=== PATIENT | female | born 1960 | race Two or more races ===

== ENCOUNTER 2025-05-24 10:07 | Inpatient (IN) | payer OTHER ==
[~2025-05-24] VITALS: Ht 157.5 cm; Wt 96.2 kg
[2025-05-24] MEDS ORDERED: ATORVASTATIN CA80 MG PO (10:48)
[2025-05-24] MEDS ORDERED: SUCRALFATE1 GM PO (10:48)
[2025-05-24] MEDS ORDERED: HYDROCHLOROTHIA25 MG PO (10:48)
[2025-05-24] MEDS ORDERED: IRBESARTAN300 MG PO (10:48)
--- NOTE | 2025-05-24 10:50 | NUR ---
PTE REFIERE DOLOR ABODMINAL DESDE HACE VARIOD CASTILLO. PTE REFIEFE QUE PADESE DE LA VESICULA. SE LE LILIAM S/V Y SE UBICA EN PAULO.
[2025-05-24] MEDS ORDERED: FAMOTIDINE/PF 20 MG in 0.9 % SODIUM CHLORIDE 8 ML IV PUSH STA (11:09)
[2025-05-24] MEDS ORDERED: METHYLPREDNISOLONE SOD SUCC 125 MG VIAL IV ONE (11:15)
[2025-05-24] MEDS ORDERED: 0.9 % SODIUM CHLORIDE 1,000 ML IV SCH ×2 (11:15)
[2025-05-24] MEDS ORDERED: ONDANSETRON HCL 2 MG/ML VIAL IV ONE (11:15)
[2025-05-24] MEDS ORDERED: KETOROLAC TROMETHAMINE 30 MG VIAL IV ONE (11:15)
--- NOTE | 2025-05-24 12:03 | NUR ---
SE ORIENTA A PACIENTE SOBRE TX [id number] Y JORDEN REFIERE ENTENDER Y ACEPTAR EL M,ISMO. SE PROCEDE A GERALDINE MUESTRAS DE LAB. BAJO MEDIDAS ASEPTICAS. SE CANALIZA PACIENTE BAJO MEDIDAS ASEPTICAS, PATENTE, DANIEL DE EDEMA Y ERITEMA. SE PROCEDE A ADMINISTRAR MEDICAMENTRO LUCIANA ORDEN MEDICA BAJO MEDIDAS ASEPTICAS.
[2025-05-24 12:39] LABS: BASO % 1.2 % (0.1-1.2); EOS # 0.30 (0.04-0.54); EOS % 5.1 % (0.7-7.0); LYMPH # 2.57 (1.18-3.74); LYMPH % 43.3 % (19.3-53.1); MEAN PLATELET VOLUME 11.70 fl (9.4-12.4); MONO # 0.79 (0.24-0.82); NEUT # 2.16 (1.56-6.13); NEUT % 36.4 % (34.0-71.1); RED CELL DISTRIBUTION WIDTH 13.9 % (11.6-14.4)
[2025-05-24 12:42] LABS: ALT/SGPT 27 U/L (12-78); AST/SGOT 21 U/L (15-37); BILIRUBIN TOTAL 0.26 mg/dL (0.3-1.2); BILIRUBIN,CONJUGATED < 0.10 mg/dL (0.0-0.2); BUN CREA RATIO 19 (7.0-25.0); CREATININE SERUM 0.73 mg/dL (0.55-1.02); GFR 80.52; GLOBULINA 4.7 G/DL (2.4-3.5); GLUCOSE FASTING 76 mg/dL (65-100); MONO % 13.3 % (4.7-12.5); OSMOLALITY SERUM 280 MOSM/KG (275-295)
[2025-05-24 12:48] LABS: INR 1.1
[2025-05-24 13:37] LABS: URINE APPEARANCE Clear; URINE BILIRRUBIN Negative (NEGATIVE); URINE BLOOD Negative; URINE COLOR Dark Yellow; URINE GLUCOSE Negative (NEGATIVE); URINE KETONE 15 (NEGATIVE); URINE LEUKOCYTE Negative; URINE NITRATE Negative; URINE PROTEIN Trace (NEGATIVE); URINE UROBILINOGEN 1.0 E.U./dl
[2025-05-24 13:41] LABS: URINE BACTERIA 20.3 uL (0.0-1933); URINE EPITHELIAL CELLS 11.6 uL (0.0-38.8); URINE RBC 19.2 uL (0.0-20.8); URINE WBC 4.3 uL (0.0-23.2)
[2025-05-24] MEDS ORDERED: MORPHINE SULFATE 4 MG/ML VIAL IV ONE (13:45)
[2025-05-24 14:10] LABS: TYPE CELLS SQUAMOUS; URINE CAST 0.87 uL (0.0-1.40); URINE CRYSTALS FEW /HPF; URINE MUCUS MODERATE
[2025-05-24] MEDS ORDERED: CIPROFLOXACIN IN 5 % DEXTROSE 200 ML IV SCH (18:22)
[2025-05-24] MEDS ORDERED: RINGERS SOLUTION,LACTATED 1,000 ML IV SCH (18:30)
[2025-05-24] MEDS ORDERED: KETOROLAC TROMETHAMINE 30 MG VIAL IV PRN (18:30)
[2025-05-24] MEDS ORDERED: POTASSIUM CHLORIDE 20MEQ/100ML H2O PB IV ONE (18:30)
[2025-05-24] MEDS ORDERED: ONDANSETRON HCL 4 MG in 0.9 % SODIUM CHLORIDE 50 ML IV PRN (18:30)
[2025-05-24] MEDS ORDERED: IRBESARTAN 300 MG TABLET PO SCH (18:37)
[2025-05-24] MEDS ORDERED: HYDROCHLOROTHIAZIDE 25 MG TABLET PO SCH (18:37)
[2025-05-25 03:18] VITALS: BP 134/79; O2SAT 99
[2025-05-25 08:00] VITALS: BP 115/67; O2SAT 100
[2025-05-25] MEDS ORDERED: SUGAMMADEX SODIUM 200 MG/2 ML VIAL IV ONE (14:15)
[2025-05-25] MEDS ORDERED: MORPHINE SULFATE 4 MG/ML VIAL IV ONE ×2 (14:20→14:50)
[2025-05-25] MEDS ORDERED: FAMOTIDINE/PF 20 MG/2 ML VIAL IV ONE (14:45)
[2025-05-25] MEDS ORDERED: ENALAPRILAT DIHYDRATE 1.25 MG/ML VIAL IV ONE (14:50)
[2025-05-25] MEDS ORDERED: KETOROLAC TROMETHAMINE 30 MG VIAL IV ONE (15:20)
[2025-05-25 16:19] LABS: ALT/SGPT 35.0 U/L (12-78); AST/SGOT 36.0 U/L (15-37); BILIRUBIN TOTAL 0.22 mg/dL (0.3-1.2); BUN CREA RATIO 34.0 (7.0-25.0); CREATININE SERUM 0.64 mg/dL (0.55-1.02); GFR 93.72; GLOBULINA 3.7 G/DL (2.4-3.5); GLUCOSE FASTING 147.0 mg/dL (65-100); OSMOLALITY SERUM 287.0 MOSM/KG (275-295)
[2025-05-25] MEDS ORDERED: SUCRALFATE 1 G TABLET PO SCH (17:00)
[2025-05-25] MEDS ORDERED: SIMETHICONE 125 MG CAPSULE PO SCH (17:00)
[2025-05-25 17:38] VITALS: BP 116/70; O2SAT 95
[2025-05-26 00:57] VITALS: BP 113/71; O2SAT 100
[2025-05-26 08:35] VITALS: BP 129/76; O2SAT 98
[2025-05-26] MEDS ORDERED: LACTOBACILLUS ACIDOPHILUS 1 CAP CAP PO SCH (09:00)
== END 2025-05-26 14:43 | disposition home or self-care (01) | DRG 419 ==
LOC: ER 10:20 → SEC-K 19:24 → SURH 19:24
PROVIDERS: General Practice; Surgery; ADMIT Student in an Organized Health Care Education/Training Program; ATTEND Student in an Organized Health Care Education/Training Program
PROC: 0FT44ZZ Resection of Gallbladder, Percutaneous Endoscopic Approach (ICD-10-PCS; principal; 2025-05-25 10:00)
DX: K80.12 Calculus of gallbladder with acute and chronic cholecystitis without obstruction (principal); I10 Essential (primary) hypertension; E78.5 Hyperlipidemia, unspecified